=== PATIENT | male | born 1945 | race Caucasian/White ===

== ENCOUNTER 2019-08-05 04:20 | Outpatient (RCR) | payer MEDICARE, MEDICAID, SELFPAY | END 2019-08-18 00:01 | LOC: LAB 04:20 | PROVIDERS: Family Provider Nurse Practitioner Family; Visit Provider Family Medicine | DX: I25.119 Atherosclerotic heart disease of native coronary artery with unspecified angina pectoris (principal) | CPT/HCPCS: 80162 ==